=== PATIENT | female | born 1950 | race African-American/Black ===

== ENCOUNTER → 2016-09-25 | Outpatient (CLI) | payer MEDICARE, OTHER ==
[~2016-09-25] MED LIST: ALBUTEROL17 GM; ALBUTEROL17 GM INH; ATARAX PO; BACTRIM DS TABL1 TAB PO; BENADRYL PO; CAPOZIDE PO; CLEOCIN PO; DOXYCYCLINE PO; HCTZ; HCTZ PO; LISINOPRIL; LOTRISONE CREAM45 GM TOP; MEDROL DOSEPAK4 MG PO; PREDNISONE PO; SYNALAR60 ML TOP; [UNRECOGNIZED DRUG - OTHER]
--- NOTE | ~2016-09-25 | CT55 ---
[facility] A Service of [facility] RADIOLOGY TEXT RESULTS PATIENT: ROULA HELMS [facility]: [facility] : 48 UNIT #: [id number] AGE: [address]: Mira Casey SEX: F ORDER DR: [id number] [facility] [address] [place], [place] [address] [id number] O MR#: [id number] Acc #: [id number] NAME: ROULA HELMS : 1950 SEX: F STUDY DATE/TIME: 09/25/2016 9:41 UNIT: [facility] ROOM: STUDY DESCRIPTION: CT Chest W Con Attending Physician: Mira Casey A.P.R.N. Referring Physician: Mira Casey A.P.R.N. Ordering Physician: Mira Casey A.P.R.N. Primary Care Physician: Ann Angulo Burke MEDICAL IMAGING REPORT This report is preliminary unless electronic signature is present EXAM Chest CT with contrast, 09/25/2016 INDICATIONS Hypertension. Chronic bronchitis. Recent diagnosis of shortness of breath 09/20/2016. Abnormal chest x-ray. TECHNIQUE Contrast enhanced CT of the chest was performed. Correlation is made with chest x-ray 09/30/2015. We have no comparison report for correlation purposes. This CT exam was performed with one or more of the following radiation dose reduction techniques: Automatic exposure control, adjustment of mA and/or kV according to patient size, and iterative reconstruction. FINDINGS CT CHEST: The lungs are clear; there is some minimal atelectasis or scarring in the lingula. No suspicious pulmonary nodule or pleural effusion. Included thyroid unremarkable. No pericardial effusion. Trace amount of fluid/thickening at the cardiac apex. There is no axillary adenopathy. No mediastinal adenopathy. Aorta demonstrates no aneurysm or dissection and is mildly tortuous. Included upper abdomen demonstrates no acute finding. Very tiny, less than 5-mm cysts are present within the dome of the right hepatic lobe. There is thoracic kyphosis and mild spondylosis. No suspicious bone lesion. IMPRESSION 1. Lungs are clear, no suspicious pulmonary nodule. Minimal atelectasis or scarring in the lingula. No effusion. 2. Tortuous aorta but no aortic aneurysm. There is underlying STS. [facility] A Service of [facility] RADIOLOGY TEXT RESULTS PATIENT: ROULA HELMS LOCATION: [facility] : 48 UNIT #: [id number] AGE: [address]: Mira Casey SEX: F ORDER DR: thoracic kyphosis and scoliosis. 3. Included upper abdomen demonstrates no acute finding. Incidental cysts within the liver measure less than 5 mm. Dictated by... Vignesh Oscar M.D. THIS IS AN ELECTRONICALLY VERIFIED REPORT Vignesh Oscar M.D. at 09/26/2016 7:36 AM CANDICE/surendra TD: 09/26/2016 00:31 JOB #: [id number] MEDICAL IMAGING REPORT COPY
[2016-09-25 10:41] LABS: POC - CREATININE 1.18 mg/dL (0.44-1.03)
== END | disposition home or self-care (01) ==
LOC: CCAT 09:04
PROVIDERS: Nurse Practitioner Adult Health
DX: R06.02 Shortness of breath (principal); R31.9 Hematuria, unspecified; R93.8 Abnormal findings on diagnostic imaging of other specified body structures; I77.1 Stricture of artery
CPT/HCPCS: 71260; 82565; Q9967

== ENCOUNTER → 2016-10-11 | Outpatient (CLI) | payer MEDICARE, OTHER ==
--- NOTE | ~2016-10-11 | CT3 ---
[facility] A Service of [facility] & [facility] RADIOLOGY TEXT RESULTS PATIENT: ROULA HELMS LOCATION: [facility] : 48 UNIT #: [id number] AGE: [address]: Brendan Xiao MD SEX: F ORDER DR: [id number] [facility] [address] [place], [place] [address] [id number] O MR#: [id number] Acc #: [id number] NAME: ROULA HELMS : 1950 SEX: F STUDY DATE/TIME: 10/11/2016 7:31 UNIT: [facility] ROOM: STUDY DESCRIPTION: CT Abd and Pelv WWo Cont Attending Physician: Brendan Xiao M.D. Referring Physician: Brendan Xiao M.D. Ordering Physician: Brendan Xiao M.D. Primary Care Physician: Brendan Xiao M.D. MEDICAL IMAGING REPORT This report is preliminary unless electronic signature is present EXAM CT of the abdomen and pelvis without and with contrast. HISTORY Blood in the urine since May 2016. TECHNIQUE Axial pre-contrast imaging was obtained through the abdomen and pelvis. This was followed by arterial and 90-second delayed phase imaging through the abdomen and 5-minute delayed phase imaging through the abdomen and pelvis. This CT exam was performed with one or more of the following radiation dose reduction techniques: automatic exposure control, adjustment of mA and/or kV according to patient size, and iterative reconstruction. FINDINGS Within the lingula, patient has some patchy consolidation, some of which has a more nodular configuration and is new when compared to an exam from June 2015. While I suspect it reflects some scarring or perhaps an acute infectious or inflammatory process, I would suggest short-term CT follow-up in 3 months. No renal stones are identified. No distal ureteral or bladder stones are seen. I think the patient has single renal arteries bilaterally. I do not see any definite flow-limiting stenosis, although there is some plaque noted at the left renal ostium. A few punctate low attenuation areas are seen throughout both kidneys. All of these are too small to accurately characterize, but I suspect they reflect renal cysts. I certainly do not see any suspicious renal masses. [facility] A Service of [facility] & [facility] RADIOLOGY TEXT RESULTS PATIENT: ROULA HELMS LOCATION: [facility] : [birth year] UNIT #: [id number] AGE: [address]: Brendan Xiao MD SEX: F ORDER DR: Single renal collecting systems are identified bilaterally. Urinary bladder appears normal. There is a tiny low attenuation lesion identified within the liver, too small to accurately characterize, but favored to probably represent cyst or other benign lesion. A second tiny low attenuation lesion is seen slightly more inferiorly, again favored to represent a benign lesion such as a cyst. Small hiatal hernia is seen. There is no pleural or pericardial effusion. Proximal small bowel is within normal limits, as are the adrenal glands and pancreas. Spleen is within normal limits, as is the gallbladder. Again, no suspicious renal masses are seen. The patient does appear to have a normal renal vein anatomy. There is atherosclerotic involvement of the abdominal aorta. The patient's right hepatic artery appears to arise from a common trunk with the celiac axis. Inferior mesenteric artery is patent. Some atherosclerotic plaque does continue into the common iliac artery. Appendix is visualized and is within normal limits. Patient is again noted to have a suspected intrauterine device. No free fluid or adenopathy is seen within the pelvis. Fairly extensive fecal burden is seen throughout the colon, and correlation with any history of constipation is suggested. There is a small inguinal hernia on the left. Review of bony windows does not demonstrate any aggressive osseous abnormalities. IMPRESSION 1. No obvious etiology for this patient's hematuria is identified. No renal stones are seen. Patient has a few tiny hypo-attenuating lesions seen within both kidneys, which are too small to accurately characterize, which are favored to represent cysts, but certainly no suspicious renal masses are seen. Bladder also appears unremarkable. 2. Patchy area of consolidation identified within the lingula which is new when compared to prior exam. It could reflect some progressive scarring or even a benign infectious or inflammatory process, but I would suggest short-term CT follow-up in 3 months to document stability or resolution, as it, again, is new when compared to the prior study. 3. Please see the body of the report for any other additional incidental findings. Dictated by... Garima Helton M.D. THIS IS AN ELECTRONICALLY VERIFIED REPORT Garima Helton M.D. at 10/11/2016 4:37 PM AFF/js TD: 10/11/2016 11:27 [facility] A Service of [facility] & [facility] RADIOLOGY TEXT RESULTS PATIENT: ROULA HELMS LOCATION: [facility] : 48 UNIT #: [id number] AGE: [address]: Brendan Xiao MD SEX: F ORDER DR: JOB #: [id number] MEDICAL IMAGING REPORT Page 1 of 1 COPY
[2016-10-11 09:35] LABS: POC - CREATININE 1.03 mg/dL (0.44-1.03); POC - GFR >60.0 mL/min (>60)
== END | disposition home or self-care (01) ==
LOC: CCAT 07:05
PROVIDERS: Urology
DX: R31.9 Hematuria, unspecified (principal); N28.89 Other specified disorders of kidney and ureter
CPT/HCPCS: 74178; 82565; Q9967